=== PATIENT | male | born 1995 | race Two or more races ===

== ENCOUNTER 2017-02-26 00:41 | Emergency (ER) | payer SELFPAY ==
[~2017-02-26] VITALS: Ht 162.6 cm; Wt 63.5 kg
[2017-02-26] MEDS ORDERED: VALP250S4 PO (00:54)
[2017-02-26] MEDS ORDERED: OLAN5TAB30 PO (00:54)
[2017-02-26 01:18] LABS: BASOPHILS % (AUTO) 0.6 % (0.0-2.0); EOSINOPHILS % (AUTO) 0.3 % (0.0-7.0); HEMOGLOBIN 13.7 G/DL (14.0-18.0); LYMPHOCYTES # (AUTO) 2.1 K/UL (0.8-4.8); LYMPHOCYTES % (AUTO) 28.7 % (20.5-51.5); MEAN CORPUSCULAR HEMOGLOBIN 29.5 UUG (27.0-31.0); MEAN CORPUSCULAR HGB CONC 33 g/dL (32.0-37.0); MEAN CORPUSCULAR VOLUME 88.6 FL (82.0-92.0); MONOCYTES # (AUTO) 0.9 K/UL (0.1-1.30); MONOCYTES % (AUTO) 12.8 % (0.0-11.0); NEUTROPHILS # (AUTO) 4.3 K/UL (1.8-8.9); NEUTROPHILS % (AUTO) 57.6 % (38.5-71.5); PLATELET COUNT (AUTO) 233 K/UL (150-450); RED BLOOD CELL COUNT(AUTO) 4.64 MIL/UL (4.7-6.1); WHITE BLOOD COUNT (AUTO) 7.3 K/UL (4.0-11.2)
[2017-02-26 01:39] LABS: VALPROIC ACID 86 ug/mL (50-100)
--- NOTE | 2017-02-26 01:39 | NUR ---
Mother: Angelica Baum Father: Radha Livingston Contact father if the patient is ready for dischrage.
[2017-02-26 01:42] LABS: CARBON DIOXIDE 22 mmol/L (21-32); CHLORIDE 108 mmol/L (98-107); CREATININE 0.7 mg/dL (0.6-1.3); GLUCOSE 116 mg/dL (74-106); POTASSIUM 3.3 mmol/L (3.5-5.1); UREA NITROGEN, BLOOD 9 mg/dL (7-18)
[2017-02-26 01:43] LABS: ETHANOL 69 MG/DL (0-0)
[2017-02-26 01:57] LABS: *BILIRUBIN,URIN NEGATIVE (NEGATIVE); *BLOOD, URINE NEGATIVE (NEGATIVE); *CLARITY,URINE CLEAR (CLEAR); *COLOR,URINE STRAW (YELLOW); *KETONES,URINE NEGATIVE (NEGATIVE); *PROTEIN,URINE NEGATIVE (NEGATIVE); *UROBILINOGEN,URINE 0.2 E.U./dl (NORMAL); LEUKOCYTE ESTERASE ,URINE NEGATIVE (NEGATIVE); NITRITE, URINE NEGATIVE (NEGATIVE); PH,URINE 5.5 (5.0-8.0); UGLUCOSE NEGATIVE (NEGATIVE)
--- NOTE | 2017-02-26 01:58 | NUR ---
Patient is resting comfortably in bed with eyes closed
[2017-02-26 02:02] LABS: ACETAMINOPHEN < 2.0 ug/mL (10-30)
[2017-02-26 02:10] LABS: ALKALINE PHOSPHATASE 79 U/L (50-136); BILIRUBIN,DIRECT 0.1 mg/dL (0.0-0.2); BILIRUBIN,TOTAL 0.2 mg/dL (0.1-1.0)
[2017-02-26 02:11] LABS: ALANINE AMINOTRANSFERASE 58 U/L (16-63); ASPARTATE AMINOTRANSFERASE 48 U/L (15-37); TOTAL PROTEIN, SERUM 6.5 g/dL (6.4-8.2)
[2017-02-26 02:28] LABS: BACTERIA,URINE NONE SEEN /HPF (NONE SEEN); RBC,URINE NONE SEEN /HPF (0-3); SQUAMOUS EPITHELIAL CELL,UR FEW /HPF (NONE SEEN); WBC,URINE 0-3 /HPF (0-3)
[2017-02-26 02:33] LABS: *AMPHETAMINE, URINE POSITIVE (NEGATIVE); *BARBITURATE, URINE NEGATIVE (NEGATIVE); *CANNABINOID, URINE POSITIVE (NEGATIVE); *COCCAINE, URINE NEGATIVE (NEGATIVE); *OPIATE, URINE NEGATIVE (NEGATIVE); *PHENCYCLIDINE SCREEN,URINE NEGATIVE (NEGATIVE)
--- NOTE | 2017-02-26 02:43 | NUR ---
Anthony Albright called for PET evaluation, no answer on either available phone numbers, no ability to leave message. Will attempt another call at a later time.
--- NOTE | 2017-02-26 03:00 | NUR ---
Patient is resting comfortably in bed with eyes closed
--- NOTE | 2017-02-26 04:29 | NUR ---
Patient in bed, no acute distress noted. All patient needs attended and met. Denies SI/HI/AH/VH at this time. Close monitoring continued. Room safety assessment completed by RN. All belongings removed from patient posession at this time. Bed in lowest position, side rails up.
--- NOTE | 2017-02-26 04:34 | NUR ---
Call placed to [facility], Anthony Albright, who stated to call the morning [facility] due to positive amphetamine result
--- NOTE | 2017-02-26 05:00 | NUR ---
Patient is resting comfortably in bed with eyes closed
--- NOTE | 2017-02-26 06:20 | NUR ---
Patient is resting comfortably in bed with eyes closed
--- NOTE | 2017-02-26 07:10 | NUR ---
Pt is easily arousable and A/O x 2, denies pain.
--- NOTE | 2017-02-26 07:59 | NUR ---
Breakfast provided, pt ate 100% of tray, speak to self at time. Calm and cooperative.
--- NOTE | 2017-02-26 08:40 | NUR ---
Spoke to Shona Johnson for PET eval, ETA 1 hour. Pt is resting w/ both eyes closed, NAD noted, continue close monitoring.
--- NOTE | 2017-02-26 10:00 | NUR ---
Pt walked to the bathroom w/ steady gait.
--- NOTE | 2017-02-26 10:15 | NUR ---
Shona Johnson from PET at the bedside for psych eval.
[2017-02-26] MEDS ORDERED: OLANZAPINE 5 MG TABLET PO ONE (10:30)
--- NOTE | 2017-02-26 10:30 | NUR ---
Per Shona Pt will stay in ER, while waiting for medication to work. Pt's family was contacted by Shona and will come to ER.
[2017-02-26] MEDS ORDERED: OLANZAPINE 5 MG TABLET ONE (10:45)
--- NOTE | 2017-02-26 13:10 | NUR ---
Pt provided lunch, had good appetite. No c/o discomfort.
--- NOTE | 2017-02-26 13:50 | NUR ---
Pt's family at the bedside.
--- NOTE | 2017-02-26 14:05 | NUR ---
Patient was with family at bedisde after talking to family patient did not want to stay. ER Dr Ford made aware. Patient left family still at bedside. Patient noted not in any distress or pain.
--- NOTE | 2017-02-26 14:38 | NUR ---
Information and resources provided by Shona Argueta to family.
--- NOTE | 2017-02-26 14:40 | NUR ---
Discharge paperwork given to Pt's family, verbalize understanding.
[2017-02-26 14:41] VITALS: BP 123/69
== END 2017-02-26 14:50 | disposition home or self-care (01) ==
LOC: EDBD 00:44 → ER 00:44
DX: F29 Unspecified psychosis not due to a substance or known physiological condition (principal)
CPT/HCPCS: 36415; 80048; 80076; 80164; 80307; 81001; 82140; 85025; 93005; 99285; A4663; G0480 ×2; G0481